=== PATIENT | female | born 1975 | race Caucasian/White ===

== ENCOUNTER 2020-09-07 15:26 | Emergency (ER) | payer OTHER ==
[~2020-09-07] VITALS: Ht 165.1 cm; Wt 72.7 kg
--- NOTE | 2020-09-07 15:53 | ED General ---
General Chief Complaint: Chest Wall Stated Complaint: ABNORMAL EKG Source of Information: Patient Exam Limitations: No Limitations History of Present Illness Date Seen by Provider: Sep 07, 2020 Time Seen by Provider: 15:45 Initial Comments This is a well-appearing 45-year-old female who presents to the ER with mid sternal chest pain. States she has been diagnosed with costochondritis in the past and this feels the same. Was told to go to ER per [facility] urgent care due to abnormal EKG, chest pain, and d/t post COVID status. She brought EKG with her, which showed T-wave depression in V3, V4. She states pain is sharp, in the center of her chest and radiates into her back, worse with deep breaths. States pain is typically relieved with Aleve but it has not helped today. Denies fever, chills, shortness of breath, nausea/vomiting/diarrhea, abdominal pain. Allergies and Home Medications Allergies Coded Allergies: codeine (Verified Allergy, Unknown, 09/07/20) Patient Home Medication List Home Medication List Reviewed: Yes Review of Systems Review of Systems Constitutional: no symptoms reported EENTM: no symptoms reported Respiratory: see HPI Cardiovascular: see HPI Gastrointestinal: no symptoms reported Genitourinary: no symptoms reported Musculoskeletal: see HPI Skin: no symptoms reported Psychiatric/Neurological: No Symptoms Reported Hematologic/Lymphatic: No Symptoms Reported Immunological/Allergic: no symptoms reported Physical Exam Vital Signs Vital Signs - First Documented 09/07/20 15:36 Temp 37.2 Pulse 86 Resp 18 B/P (MAP) 144/85 (104) Pulse Ox 99 O2 Delivery Room Air Capillary Refill : Height, Weight, BMI Height: '" Weight: lbs. oz. kg; BMI Method: General Appearance: No Apparent Distress, WD/WN Eyes: Bilateral Eye Normal Inspection, Bilateral Eye PERRL, Bilateral Eye EOMI HEENT: PERRL/EOMI, Normal ENT Inspection, Pharynx Normal Neck: Full Range of Motion, Non Tender Respiratory: Lungs Clear, Normal Breath Sounds, No Accessory Muscle Use, No Respiratory Distress, Other (sternal chest tenderness ) Cardiovascular: Regular Rate, Rhythm, No Edema, No Murmur, Normal Peripheral Pulses Gastrointestinal: Normal Bowel Sounds, Non Tender, Soft Back: Normal Inspection, No Vertebral Tenderness Extremity: Normal Inspection, Normal Range of Motion, No Pedal Edema Neurologic/Psychiatric: Alert, Oriented x3, No Motor/Sensory Deficits, Normal Mood/Affect Skin: Normal Color, Warm/Dry Progress/Results/Core Measures Suspected Sepsis SIRS Temperature: Pulse: Respiratory Rate: Laboratory Tests 09/07/20 15:49: White Blood Count 8.1 Blood Pressure / Mean: Laboratory Tests 09/07/20 15:49: Creatinine 0.98, INR Comment 1.1, Platelet Count 185, Total Bilirubin 0.4 Results/Orders Lab Results Laboratory Tests Test 09/07/20 15:49 Range/Units White Blood Count 8.1 4.3-11.0 10^3/uL Red Blood Count 4.97 3.80-5.11 10^6/uL Hemoglobin 14.6 11.5-16.0 g/dL Hematocrit 43 35-52 % Mean Corpuscular Volume 87 80-99 fL Mean Corpuscular Hemoglobin 29 25-34 pg Mean Corpuscular Hemoglobin Concent 34 32-36 g/dL Red Cell Distribution Width 11.9 10.0-14.5 % Platelet Count 185 130-400 10^3/uL Mean Platelet Volume 10.4 9.0-12.2 fL Immature Granulocyte % (Auto) 0 % Neutrophils (%) (Auto) 65 42-75 % Lymphocytes (%) (Auto) 27 12-44 % Monocytes (%) (Auto) 6 0-12 % Eosinophils (%) (Auto) 2 0-10 % Basophils (%) (Auto) 1 0-10 % Neutrophils # (Auto) 5.2 1.8-7.8 10^3/uL Lymphocytes # (Auto) 2.2 1.0-4.0 10^3/uL Monocytes # (Auto) 0.5 0.0-1.0 10^3/uL Eosinophils # (Auto) 0.1 0.0-0.3 10^3/uL Basophils # (Auto) 0.0 0.0-0.1 10^3/uL Immature Granulocyte # (Auto) 0.0 0.0-0.1 10^3/uL Prothrombin Time 14.2 12.2-14.7 SEC INR Comment 1.1 0.8-1.4 Activated Partial Thromboplast Time 30 24-35 SEC D-Dimer 0.30 0.00-0.49 UG/ML Sodium Level 140 135-145 MMOL/L Potassium Level 3.8 3.6-5.0 MMOL/L Chloride Level 106 98-107 MMOL/L Carbon Dioxide Level 24 21-32 MMOL/L Anion Gap 10 5-14 MMOL/L Blood Urea Nitrogen 16 7-18 MG/DL Creatinine 0.98 0.60-1.30 MG/DL Estimat Glomerular Filtration Rate > 60 BUN/Creatinine Ratio 16 Glucose Level 104 70-105 MG/DL Calcium Level 8.8 8.5-10.1 MG/DL Corrected Calcium 8.5-10.1 MG/DL Magnesium Level 1.9 1.6-2.4 MG/DL Total Bilirubin 0.4 0.1-1.0 MG/DL Aspartate Amino Transf (AST/SGOT) 14 5-34 U/L Alanine Aminotransferase (ALT/SGPT) 16 0-55 U/L Alkaline Phosphatase 68 40-136 U/L Creatine Kinase MB 0.3 <6.6 NG/ML Myoglobin 19.2 10.0-92.0 NG/ML Troponin I < 0.028 <0.028 NG/ML Total Protein 7.3 6.4-8.2 GM/DL Albumin 4.6 H 3.2-4.5 GM/DL My Orders Orders - BRADLEY [employer] Cbc With Automated Diff (09/07/20 15:53) Magnesium (09/07/20 15:53) Chest 1 View, Ap/Pa Only (09/07/20 15:53) Ekg Tracing (09/07/20 15:53) Comprehensive Metabolic Panel (09/07/20 15:53) Myoglobin Serum (09/07/20 15:53) Protime With Inr (09/07/20 15:53) Partial Thromboplastin Time (09/07/20 15:53) Ed Iv/Invasive Line Start (09/07/20 15:53) Fibrin Degradation Products (09/07/20 15:53) Troponin I (09/07/20 15:53) Creatine Kinase Mb (09/07/20 15:53) Ketorolac Injection (Toradol Injection) (09/07/20 16:15) Medications Given in ED Current Medications Medications Dose Ordered Sig/Antonia Route Start Time Stop Time Status Last Admin Dose Admin Ketorolac Tromethamine 15 mg ONCE ONCE IVP 09/07/20 16:15 09/07/20 16:16 DC 09/07/20 16:21 15 MG Vital Signs/I&O 09/07/20 09/07/20 15:36 17:15 Temp 37.2 Pulse 86 74 Resp 18 18 B/P (MAP) 144/85 (104) 100/79 Pulse Ox 99 74 O2 Delivery Room Air Capillary Refill : Progress Note : Progress Note Pt. examined and in no acute distress. Initiated chest pain workup and d-dimer d/t recent COVID infection. Labs and CXR reviewed and show no acute findings. She has no cardiovascular risk factors and pain has been present >6 hours. Reviewed discharge plan and she is agreeable with plan. ECG Initial ECG Impression Date: Sep 07, 2020 Initial ECG Impression Time: 15:42 Initial ECG Rate: 80 Initial ECG Rhythm: Normal Sinus Initial ECG Intervals: Normal Initial ECG Impression: Normal Diagnostic Imaging Diagonstic Imaging: Xray Plain Films/CT/US/NM/MRI: chest Comments NAME: DANN MARTINEZ [facility] REC#: [id number] PT STATUS: REG ER : 1975 PHYSICIAN: BRADLEY [employer] ADMIT DATE: 09/07/20/ER Signed Date of Exam:09/07/20 CHEST 1 VIEW, AP/PA ONLY EXAMINATION: Chest radiograph, portable AP view. DATE: 09/07/2020 4:16 PM INDICATION: 45-year-old female, chest pain. COMPARISON: None. FINDINGS: Heart size and mediastinal contours are unremarkable. There is no identified pneumothorax. There is no large pleural effusion. There is no identified focal airspace consolidation. IMPRESSION: No identified acute cardiopulmonary abnormality. Dictated by: Dictated on workstation # [id number] Dict: 09/07/20 1617 Trans: 09/07/20 1641 [facility] [id number] Interpreted by: FRANCO LEON MD Electronically signed by: FRANCO LEON MD 09/07/20 164 Reviewed: Reviewed by Me Departure Impression Primary Impression: Costochondritis Disposition: 01 HOME, SELF-CARE Condition: Improved Departure-Patient Inst. Decision time for Depature: 17:07 Referrals: NO,LOCAL PHYSICIAN (PCP/Family) Primary Care Physician Patient Instructions: Costochondritis (DC) Add. Discharge Instructions: Plan: 1. Discharge home. Use incentive spirometry every 2 hours while awake as shown in ER. 2. May take Aleve or Ibuprofen as needed for pain per package instructions. 3. Follow up with your primary care provider if your symptoms persist. 4. Return for any new or concerning symptoms. All discharge instructions reviewed with patient and/or family. Voiced understanding. BRADLEY [employer] Sep 07, 2020 15:53
[2020-09-07 16:03] LABS: ALBUMIN 4.6 GM/DL (3.2-4.5); CHLORIDE 106 MMOL/L (98-107); POTASSIUM 3.8 MMOL/L (3.6-5.0); SODIUM 140 MMOL/L (135-145)
[2020-09-07 16:04] LABS: CALCIUM 8.8 MG/DL (8.5-10.1)
[2020-09-07 16:05] LABS: GLUCOSE 104 MG/DL (70-105)
[2020-09-07 16:06] LABS: BASOPHILS % (AUTO) 1 % (0-10); EOSINOPHILS # (AUTO) 0.1 10^3/uL (0.0-0.3); EOSINOPHILS % (AUTO) 2 % (0-10); HEMATOCRIT 43 % (35-52); HEMOGLOBIN 14.6 g/dL (11.5-16.0); LYMPHOCYTES # (AUTO) 2.2 10^3/uL (1.0-4.0); LYMPHOCYTES % (AUTO) 27 % (12-44); MEAN CORPUSCULAR HEMOGLOBIN 29 pg (25-34); MEAN CORPUSCULAR HGB CONC 34 g/dL (32-36); MEAN CORPUSCULAR VOLUME 87 fL (80-99); MEAN PLATELET VOLUME 10.4 fL (9.0-12.2); MONOCYTES # (AUTO) 0.5 10^3/uL (0.0-1.0); MONOCYTES % (AUTO) 6 % (0-12); NEUTROPHILS # (AUTO) 5.2 10^3/uL (1.8-7.8); NEUTROPHILS % (AUTO) 65 % (42-75); PLATELET COUNT 185 10^3/uL (130-400); TOTAL PROTEIN 7.3 GM/DL (6.4-8.2); WHITE BLOOD COUNT 8.1 10^3/uL (4.3-11.0)
[2020-09-07 16:07] LABS: BILIRUBIN,TOTAL 0.4 MG/DL (0.1-1.0); CARBON DIOXIDE 24 MMOL/L (21-32)
[2020-09-07 16:09] LABS: ALKALINE PHOSPHATASE 68 U/L (40-136); CREATININE SERUM 0.98 MG/DL (0.60-1.30); GFR ESTIMATED > 60
[2020-09-07 16:10] LABS: BUN/CREATININE RATIO 16
[2020-09-07 16:12] LABS: ALANINE AMINOTRANSFERASE 16 U/L (0-55); MAGNESIUM 1.9 MG/DL (1.6-2.4)
[2020-09-07] MEDS ORDERED: KETOROLAC 30 MG/ML VIAL IVP ONE (16:15)
[2020-09-07 16:19] LABS: CREATINE KINASE MB 0.3 NG/ML (<6.6)
--- NOTE | 2020-09-07 16:22 | Diagnostic Imaging Report ---
EXAMINATION: Chest radiograph, portable AP view. DATE: 09/07/2020 4:16 PM INDICATION: 45-year-old female, chest pain. COMPARISON: None. FINDINGS: Heart size and mediastinal contours are unremarkable. There is no identified pneumothorax. There is no large pleural effusion. There is no identified focal airspace consolidation. IMPRESSION: No identified acute cardiopulmonary abnormality. Dictated by: Dictated on workstation # [id number]
[2020-09-07 16:23] LABS: INR 1.1 (0.8-1.4); PROTHROMBIN TIME PATIENT 14.2 SEC (12.2-14.7)
[2020-09-07 17:15] VITALS: BP 100/79
== END 2020-09-07 17:15 | disposition home or self-care (01) ==
LOC: ER 15:28
DX: M94.0 Chondrocostal junction syndrome [Tietze] (principal); Z88.5 Allergy status to narcotic agent
CPT/HCPCS: 36415; 71045; 80053; 82553; 83735; 83874; 84484; 85025; 85379; 85610; 85730; 93005